=== PATIENT | male | born 1985 | race Caucasian/White ===

== ENCOUNTER 2020-10-20 12:56 | Inpatient (IN) | payer MEDICAID ==
[~2020-10-20] VITALS: Ht 177.8 cm; Wt 105.7 kg
[2020-10-20] MEDS ORDERED: LOSARTAN (13:14)
[2020-10-20] MEDS ORDERED: SODIUM CHLORIDE 0.9% 250 ML IV ONE (14:00)
[2020-10-20 15:23] LABS: BASOPHILS % 0.3 % (0.0-2.0); HEMATOCRIT. 46.4 % (42.0-52.0); HEMOGLOBIN. 15.3 g/dL (14.0-18.0); LYMPHOCYTES % 19.8 % (20.0-50.0); MEAN CORPUSCULAR HEMOGLOBIN 26.9 pg (28.0-32.0); MEAN CORPUSCULAR VOLUME 81.4 fL (80.0-94.0); MEAN PLATELET VOLUME 8.4 fl (7.4-10.4); MONOCYTES % 7.2 % (2.0-8.0); NEUTROPHILS % 72.7 % (40.0-76.0); PLATELET 125 x1000/uL (130-400); RED CELL DISTRIBUTION WIDTH 13.5 % (11.6-14.6)
[2020-10-20 15:30] LABS: CHLORIDE 107 mEq/L (98-107)
[2020-10-20 15:36] LABS: D-DIMER 0.8 mg/L FEU (<0.50); PROTHROMBIN TIME 10.9 sec (9.6-11.0)
[2020-10-20] MEDS ORDERED: AZITHROMYCIN 500 MG in DEXT 5% WATER 250 ML IV ONE (16:15)
[2020-10-20] MEDS ORDERED: CEFTRIAXONE 1 G PREMIX 50 ML IV ONE (16:15)
[2020-10-20 21:09] LABS: CLARITY URINE CLEAR (CLEAR); COLOR URINE YELLOW (YELLOW); KETONES URINE 1+ (NEGATIVE); LEUKOCYTE ESTERASE URINE NEGATIVE (NEGATIVE); NITRITE URINE NEGATIVE (NEGATIVE); OCCULT BLOOD URINE NEGATIVE (NEGATIVE); PROTEIN URINE 1+ (NEGATIVE)
[2020-10-21 12:20] VITALS: BP 174/69
[2020-10-21] MEDS ORDERED: AMLODIPINE 2.5MG TABLET PO SCH (13:45)
[2020-10-21 16:00] VITALS: BP 134/83
[2020-10-21] MEDS ORDERED: ACETAMINOPHEN 325MG TABLET PO PRN (16:30)
[2020-10-21] MEDS ORDERED: ONDANSETRON HCL 4MG/2ML INJ IV PRN (16:30)
[2020-10-21] MEDS: DEXAMETHASONE 10 MG/ML VIAL IV SCH (18:11)
[2020-10-21] MEDS: ACETAMINOPHEN 325MG TABLET PO PRN (18:12)
[2020-10-21 20:00] VITALS: BP 147/92
[2020-10-21] MEDS: ASCORBIC ACID 500 MG TABLET PO SCH (21:34)
[2020-10-21] MEDS: AZITHROMYCIN 500 MG in DEXT 5% WATER 250 ML IV SCH (21:34)
[2020-10-21] MEDS: ENOXAPARIN 30MG/0.3ML SYR SUBCUT SCH (21:48)
[2020-10-21] MEDS: CEFTRIAXONE 1,000 MG in DEXTROSE 5% WATER 50 ML IV SCH (21:50)
[2020-10-22] VITALS: BP 130/92
[2020-10-22 04:00] VITALS: BP 118/83
[2020-10-22 07:02] LABS: BASOPHILS % 0.1 % (0.0-2.0); HEMATOCRIT. 44.9 % (42.0-52.0); HEMOGLOBIN. 15.2 g/dL (14.0-18.0); LYMPHOCYTES % 20.6 % (20.0-50.0); MEAN CORPUSCULAR HEMOGLOBIN 27.7 pg (28.0-32.0); MEAN CORPUSCULAR VOLUME 81.6 fL (80.0-94.0); MEAN PLATELET VOLUME 8.8 fl (7.4-10.4); MONOCYTES % 8.7 % (2.0-8.0); NEUTROPHILS % 70.6 % (40.0-76.0); PLATELET 164 x1000/uL (130-400); RED CELL DISTRIBUTION WIDTH 13.4 % (11.6-14.6)
[2020-10-22 07:05] LABS: CHLORIDE 105 mEq/L (98-107)
[2020-10-22 08:00] VITALS: BP_SYST 136; BP_SYST 143; BP_DIAS 84; BP_DIAS 99
[2020-10-22] MEDS: ACETAMINOPHEN 325MG TABLET PO PRN ×2 (08:38→17:16)
[2020-10-22] MEDS: ENOXAPARIN 30MG/0.3ML SYR SUBCUT SCH ×2 (08:39→20:42)
[2020-10-22] MEDS: ASCORBIC ACID 500 MG TABLET PO SCH ×2 (08:40→20:43)
[2020-10-22] MEDS: ZINC SULFATE 220 MG ( 50 ) CAPSULE PO SCH (08:40)
[2020-10-22] MEDS: AMLODIPINE 5MG TABLET PO SCH (08:41)
[2020-10-22 12:00] VITALS: BP 117/73
[2020-10-22 16:00] VITALS: BP 140/83
[2020-10-22] MEDS: CEFTRIAXONE 1,000 MG in DEXTROSE 5% WATER 50 ML IV SCH (16:44)
[2020-10-22] MEDS: DEXAMETHASONE 10 MG/ML VIAL IV SCH (16:44)
[2020-10-22 20:00] VITALS: BP 128/87
[2020-10-22] MEDS: ATORVASTATIN CALCIUM 10MG TABLET PO SCH (20:43)
[2020-10-22] MEDS: AZITHROMYCIN 500 MG in DEXT 5% WATER 250 ML IV SCH (21:06)
[2020-10-23] VITALS: BP 145/95
[2020-10-23] MEDS: HYDROCODONE/ACETAMINOPHEN 5/325MG TABLET PO PRN (01:33)
[2020-10-23 04:00] VITALS: BP 139/91
[2020-10-23 07:57] LABS: BASOPHILS % 0.1 % (0.0-2.0); HEMATOCRIT. 41.5 % (42.0-52.0); HEMOGLOBIN. 14.3 g/dL (14.0-18.0); LYMPHOCYTES % 7.6 % (20.0-50.0); MEAN CORPUSCULAR HEMOGLOBIN 27.8 pg (28.0-32.0); MEAN PLATELET VOLUME 8.7 fl (7.4-10.4); NEUTROPHILS % 86.3 % (40.0-76.0); PLATELET 179 x1000/uL (130-400); RED BLOOD CELL COUNT 5.13 mill/uL (4.7-6.1); RED CELL DISTRIBUTION WIDTH 13.1 % (11.6-14.6)
[2020-10-23 08:00] VITALS: BP 151/85
[2020-10-23 08:19] LABS: CHLORIDE 107 mEq/L (98-107)
[2020-10-23] MEDS: ENOXAPARIN 30MG/0.3ML SYR SUBCUT SCH ×2 (09:35→21:16)
[2020-10-23] MEDS: ASCORBIC ACID 500 MG TABLET PO SCH ×2 (09:35→21:16)
[2020-10-23] MEDS: ZINC SULFATE 220 MG ( 50 ) CAPSULE PO SCH (09:35)
[2020-10-23] MEDS: AMLODIPINE 5MG TABLET PO SCH (09:43)
[2020-10-23 12:00] VITALS: BP 135/88
[2020-10-23] MEDS: ACETAMINOPHEN 325MG TABLET PO PRN ×2 (12:00→21:37)
[2020-10-23 16:00] VITALS: BP 119/85
[2020-10-23] MEDS: CEFTRIAXONE 1,000 MG in DEXTROSE 5% WATER 50 ML IV SCH (16:57)
[2020-10-23] MEDS: DEXAMETHASONE 10 MG/ML VIAL IV SCH (16:57)
[2020-10-23 20:00] VITALS: BP 125/84
[2020-10-23] MEDS: AZITHROMYCIN 500 MG in DEXT 5% WATER 250 ML IV SCH (21:17)
[2020-10-23] MEDS: ATORVASTATIN CALCIUM 10MG TABLET PO SCH (21:37)
[2020-10-24] VITALS: BP 127/80
[2020-10-24] MEDS: HYDROCODONE/ACETAMINOPHEN 5/325MG TABLET PO PRN (00:29)
[2020-10-24 04:00] VITALS: BP 106/56
[2020-10-24 08:00] VITALS: BP 162/90
[2020-10-24] MEDS: ASCORBIC ACID 500 MG TABLET PO SCH ×2 (08:33→20:10)
[2020-10-24] MEDS: ENOXAPARIN 30MG/0.3ML SYR SUBCUT SCH ×2 (08:33→20:11)
[2020-10-24] MEDS: AMLODIPINE 5MG TABLET PO SCH (08:33)
[2020-10-24] MEDS: ZINC SULFATE 220 MG ( 50 ) CAPSULE PO SCH (08:33)
[2020-10-24] MEDS: ACETAMINOPHEN 325MG TABLET PO PRN (09:48)
[2020-10-24] MEDS ORDERED: LIDOCAINE HCL/PF 1% 2ML VIAL ONE (10:00)
[2020-10-24 10:18] LABS: BG BASE EXCESS -0.5 mmol/L (-2.0-2.0); BG CARBOXYHEMOGLOBIN 0.6 % (0.5-1.5); BG DEOXYHEMOGLOBIN 9.7 % (0.0-5.0); BG FRACTION INSPIRED OXYGEN 21; BG HCO3 ACT 20.8 mmol/L (22.0-26.0); BG METHEMOGLOBIN 0.3 % (0.0-1.5); BG OXYGEN SATURATION 90.2 % (92.0-98.5); BG OXYHEMOGLOBIN 89.4 % (94.0-97.0); BG PCO2 26.3 mmHg (35.0-45.0); BG PH 7.517 (7.350-7.450); BG SAMPLE SITE RIGHT RADIAL; BG TOTAL HEMOGLOBIN 14.5 g/dL (12.0-18.0); BG VENT MODE ROOM AIR
[2020-10-24 12:00] VITALS: BP 113/87
[2020-10-24 16:00] VITALS: BP 118/86
[2020-10-24] MEDS: DEXAMETHASONE 10 MG/ML VIAL IV SCH (17:07)
[2020-10-24] MEDS: CEFTRIAXONE 1,000 MG in DEXTROSE 5% WATER 50 ML IV SCH (17:07)
[2020-10-24 20:00] VITALS: BP 112/68
[2020-10-24] MEDS: ATORVASTATIN CALCIUM 10MG TABLET PO SCH (20:10)
[2020-10-24] MEDS: AZITHROMYCIN 500 MG in DEXT 5% WATER 250 ML IV SCH (20:11)
[2020-10-25 00:40] VITALS: BP 104/61
[2020-10-25 04:00] VITALS: BP 120/61
[2020-10-25 06:55] LABS: HEMATOCRIT. 42.1 % (42.0-52.0); HEMOGLOBIN. 14.3 g/dL (14.0-18.0); LYMPHOCYTES % 8.6 % (20.0-50.0); MEAN CORPUSCULAR HEMOGLOBIN 27.6 pg (28.0-32.0); MEAN CORPUSCULAR VOLUME 81.6 fL (80.0-94.0); MEAN PLATELET VOLUME 8.6 fl (7.4-10.4); MONOCYTES % 7.8 % (2.0-8.0); NEUTROPHILS % 83.6 % (40.0-76.0); PLATELET 269 x1000/uL (130-400); RED BLOOD CELL COUNT 5.16 mill/uL (4.7-6.1); RED CELL DISTRIBUTION WIDTH 13.6 % (11.6-14.6)
[2020-10-25 08:00] VITALS: BP 114/72
[2020-10-25] MEDS: ZINC SULFATE 220 MG ( 50 ) CAPSULE PO SCH (08:03)
[2020-10-25] MEDS: ENOXAPARIN 30MG/0.3ML SYR SUBCUT SCH ×2 (08:03→21:13)
[2020-10-25] MEDS: AMLODIPINE 5MG TABLET PO SCH (08:04)
[2020-10-25] MEDS: ASCORBIC ACID 500 MG TABLET PO SCH ×2 (08:04→21:13)
[2020-10-25 09:16] LABS: CHLORIDE 107 mEq/L (98-107)
[2020-10-25] MEDS: ASPIRIN 81MG TABLET PO SCH (09:38)
[2020-10-25 12:00] VITALS: BP 127/82
[2020-10-25 16:00] VITALS: BP 136/84
[2020-10-25] MEDS: CEFTRIAXONE 1,000 MG in DEXTROSE 5% WATER 50 ML IV SCH (17:05)
[2020-10-25] MEDS: DEXAMETHASONE 10 MG/ML VIAL IV SCH (17:05)
[2020-10-25 20:00] VITALS: BP 117/76
[2020-10-25] MEDS: AZITHROMYCIN 500 MG in DEXT 5% WATER 250 ML IV SCH (20:59)
[2020-10-25] MEDS: ATORVASTATIN CALCIUM 10MG TABLET PO SCH (21:13)
[2020-10-25] MEDS ORDERED: HYDROCODONE/ACETAMINOPHEN 5/325MG TABLET PO PRN (22:15)
[2020-10-25] MEDS: ZOLPIDEM TARTRATE 5MG TABLET PO PRN (23:07)
[2020-10-26] VITALS: BP_SYST 100; BP_SYST 186; BP_DIAS 63; BP_DIAS 86
[2020-10-26 04:00] VITALS: BP 114/73
[2020-10-26 07:35] LABS: BASOPHILS % 0.2 % (0.0-2.0); HEMATOCRIT. 40.3 % (42.0-52.0); HEMOGLOBIN. 13.8 g/dL (14.0-18.0); LYMPHOCYTES % 12.6 % (20.0-50.0); MEAN CORPUSCULAR HEMOGLOBIN 27.9 pg (28.0-32.0); MEAN CORPUSCULAR VOLUME 81.5 fL (80.0-94.0); MEAN PLATELET VOLUME 8.4 fl (7.4-10.4); MONOCYTES % 8.6 % (2.0-8.0); NEUTROPHILS % 78.6 % (40.0-76.0); PLATELET 296 x1000/uL (130-400); RED BLOOD CELL COUNT 4.95 mill/uL (4.7-6.1); RED CELL DISTRIBUTION WIDTH 13.1 % (11.6-14.6)
[2020-10-26 08:00] VITALS: BP 114/77
[2020-10-26 08:12] LABS: CHLORIDE 112 mEq/L (98-107)
[2020-10-26] MEDS: ASPIRIN 81MG TABLET PO SCH (10:08)
[2020-10-26] MEDS: AMLODIPINE 5MG TABLET PO SCH (10:08)
[2020-10-26] MEDS: ZINC SULFATE 220 MG ( 50 ) CAPSULE PO SCH (10:08)
[2020-10-26] MEDS: ENOXAPARIN 30MG/0.3ML SYR SUBCUT SCH ×2 (10:14→21:50)
[2020-10-26 12:00] VITALS: BP 114/75
[2020-10-26 16:00] VITALS: BP 110/73
[2020-10-26] MEDS: DEXAMETHASONE 10 MG/ML VIAL IV SCH (17:44)
[2020-10-26 20:00] VITALS: BP 126/79
[2020-10-26] MEDS: ZOLPIDEM TARTRATE 5MG TABLET PO PRN (21:45)
[2020-10-26] MEDS: ASCORBIC ACID 500 MG TABLET PO SCH (21:45)
[2020-10-26] MEDS: ATORVASTATIN CALCIUM 10MG TABLET PO SCH (21:45)
[2020-10-26 23:24] LABS: BG BASE EXCESS -4.2 mmol/L (-2.0-2.0); BG CARBOXYHEMOGLOBIN 0.2 % (0.5-1.5); BG HCO3 ACT 18.6 mmol/L (22.0-26.0); BG METHEMOGLOBIN 0.2 % (0.0-1.5); BG OXYHEMOGLOBIN 94.6 % (94.0-97.0); BG PH 7.426 (7.350-7.450); BG PO2 76.2 mmHg (75.0-100.0); BG SAMPLE SITE RIGHT RADIAL; BG TOTAL HEMOGLOBIN 15.3 g/dL (12.0-18.0); BG VENT MODE ROOM AIR
[2020-10-27] VITALS: BP 100/63
[2020-10-27 04:00] VITALS: BP 156/81
[2020-10-27 06:23] LABS: CHLORIDE 110 mEq/L (98-107)
[2020-10-27 06:58] LABS: HEMATOCRIT. 41.5 % (42.0-52.0); HEMOGLOBIN. 14.3 g/dL (14.0-18.0); MEAN CORPUSCULAR HEMOGLOBIN 28.3 pg (28.0-32.0); MEAN CORPUSCULAR VOLUME 82.1 fL (80.0-94.0); MEAN PLATELET VOLUME 8.4 fl (7.4-10.4); PLATELET 383 x1000/uL (130-400); RED BLOOD CELL COUNT 5.05 mill/uL (4.7-6.1)
[2020-10-27 08:00] VITALS: BP 151/95
[2020-10-27] MEDS: ZINC SULFATE 220 MG ( 50 ) CAPSULE PO SCH (09:00)
[2020-10-27] MEDS: ASPIRIN 81MG TABLET PO SCH (09:00)
[2020-10-27] MEDS: ENOXAPARIN 30MG/0.3ML SYR SUBCUT SCH (09:00)
[2020-10-27] MEDS: AMLODIPINE 5MG TABLET PO SCH (09:00)
[2020-10-27] MEDS: ASCORBIC ACID 500 MG TABLET PO SCH (09:00)
[2020-10-27 12:39] LABS: BG BASE EXCESS -0.1 mmol/L (-2.0-2.0); BG CARBOXYHEMOGLOBIN 0.3 % (0.5-1.5); BG DEOXYHEMOGLOBIN 4.2 % (0.0-5.0); BG HCO3 ACT 23.3 mmol/L (22.0-26.0); BG METHEMOGLOBIN 0.1 % (0.0-1.5); BG OXYGEN SATURATION 95.8 % (92.0-98.5); BG OXYHEMOGLOBIN 95.4 % (94.0-97.0); BG PCO2 34.5 mmHg (35.0-45.0); BG PH 7.447 (7.350-7.450); BG PO2 81.9 mmHg (75.0-100.0); BG SAMPLE SITE RIGHT BRACHIAL; BG TOTAL HEMOGLOBIN 14.8 g/dL (12.0-18.0); BG VENT MODE ROOM AIR
[2020-10-27 16:00] VITALS: BP 107/69
[2020-10-27 16:39] LABS: PLATELET ESTIMATE NORMAL
[2020-10-27 20:25] VITALS: BP 129/91
== END 2020-10-27 20:53 | disposition home or self-care (01) | DRG 720 ==
LOC: ER 13:10 → 7WST 17:22 → EDBEDREQ 17:34 → ENRESERV 10-21 08:39
PROVIDERS: ADMIT Internal Medicine; ATTEND Internal Medicine
DX: A41.89 Other specified sepsis (principal); U07.1 COVID-19; J96.91 Respiratory failure, unspecified with hypoxia; M94.0 Chondrocostal junction syndrome [Tietze]; K76.0 Fatty (change of) liver, not elsewhere classified; K92.2 Gastrointestinal hemorrhage, unspecified; I10 Essential (primary) hypertension; D69.6 Thrombocytopenia, unspecified; R74.01 Elevation of levels of liver transaminase levels; E78.5 Hyperlipidemia, unspecified; J12.82 Pneumonia due to coronavirus disease 2019; Z82.49 Family history of ischemic heart disease and other diseases of the circulatory system; Z79.899 Other long term (current) drug therapy; E66.01 Morbid (severe) obesity due to excess calories; Z68.33 Body mass index [BMI] 33.0-33.9, adult
CPT/HCPCS: 36415; 36600; 71045; 71275; 80048; 80053; 80061; 81003; 82375; 82728; 82805; 83605; 83735; 83880; 84145; 84484; 85025; 85379; 85384; 86140; 93005; 99291; J0456; J0696; J1100; J1650; J3490; J7050; J7060; U0003

== ENCOUNTER 2021-11-29 06:39 | Emergency (ER) | payer MEDICAID ==
[~2021-11-29] VITALS: Ht 177.8 cm; Wt 122.0 kg
[~2021-11-29 06:39] MED LIST: LOSARTAN
[2021-11-29 08:43] LABS: CLARITY URINE CLEAR (CLEAR); COLOR URINE DARK YELLOW (YELLOW); KETONES URINE TRACE (NEGATIVE); LEUKOCYTE ESTERASE URINE NEGATIVE (NEGATIVE); NITRITE URINE NEGATIVE (NEGATIVE); OCCULT BLOOD URINE NEGATIVE (NEGATIVE); PROTEIN URINE TRACE (NEGATIVE); SPECIFIC GRAVITY URINE 1.022 (1.005-1.030)
[2021-11-29 08:53] LABS: BASOPHILS % 0.7 % (0.0-2.0); EOSINOPHILS % 1.8 % (0.0-5.0); HEMATOCRIT. 42.3 % (42.0-52.0); HEMOGLOBIN. 14.6 g/dL (14.0-18.0); LYMPHOCYTES % 22.7 % (20.0-50.0); MEAN CORPUSCULAR HEMOGLOBIN 28.1 pg (28.0-32.0); MEAN PLATELET VOLUME 8.4 fl (7.4-10.4); MONOCYTES % 7.2 % (2.0-8.0); NEUTROPHILS % 67.6 % (40.0-76.0); PLATELET 234 x1000/uL (130-400); RED BLOOD CELL COUNT 5.22 mill/uL (4.7-6.1); RED CELL DISTRIBUTION WIDTH 13.4 % (11.6-14.6)
[2021-11-29 09:00] LABS: CHLORIDE 108 mEq/L (98-107)
[2021-11-29] MEDS ORDERED: SODIUM CHLORIDE 0.9% 1,000 ML IV ONE (10:15)
[2021-11-29] MEDS ORDERED: KETOROLAC 15MG/ML VIAL IV ONE (10:15)
[2021-11-29 13:35] VITALS: BP 135/88
== END 2021-11-29 13:36 | disposition home or self-care (01) ==
LOC: ER 06:39
DX: R10.9 Unspecified abdominal pain (principal); E11.9 Type 2 diabetes mellitus without complications; E78.00 Pure hypercholesterolemia, unspecified; I10 Essential (primary) hypertension
CPT/HCPCS: 36415; 74176; 80053; 81003; 83690; 85025; 96361; 96374; 99284; J1885; J7030